=== PATIENT | male | born 1970 | race Caucasian/White ===

== ENCOUNTER → 2020-02-28 08:45 | Outpatient (BNVA) | payer MEDICAID, SELFPAY | PROVIDERS: Visit Provider Psychiatry & Neurology Psychiatry | DX: F41.1 Generalized anxiety disorder (principal); F43.12 Post-traumatic stress disorder, chronic; F40.10 Social phobia, unspecified; F15.21 Other stimulant dependence, in remission; F12.21 Cannabis dependence, in remission | CPT/HCPCS: 99204 ==

== ENCOUNTER → 2020-03-02 16:10 | Outpatient (BNVA) | payer MEDICAID, SELFPAY | PROVIDERS: Visit Provider Nurse Practitioner | DX: M19.90 Unspecified osteoarthritis, unspecified site (principal) | CPT/HCPCS: 80053; 85025 ==

== ENCOUNTER → 2020-03-22 13:09 | Outpatient (BNVA) | payer MEDICAID, SELFPAY | PROVIDERS: Visit Provider Nurse Practitioner | DX: M79.642 Pain in left hand (principal); M79.641 Pain in right hand; M25.562 Pain in left knee; M25.561 Pain in right knee; G89.29 Other chronic pain; R05 Cough; F17.210 Nicotine dependence, cigarettes, uncomplicated | CPT/HCPCS: 71046; 73130; 73562 ==

== ENCOUNTER → 2020-03-23 08:27 | Outpatient (BNVA) | payer MEDICAID, SELFPAY | PROVIDERS: Visit Provider Nurse Practitioner | DX: E55.9 Vitamin D deficiency, unspecified (principal); M19.90 Unspecified osteoarthritis, unspecified site; M79.7 Fibromyalgia; J98.01 Acute bronchospasm | CPT/HCPCS: 82306; 85651 ==

== ENCOUNTER → 2020-04-03 07:46 | Outpatient (BNVA) | payer MEDICAID, SELFPAY | PROVIDERS: Visit Provider Psychiatry & Neurology Psychiatry | DX: F43.12 Post-traumatic stress disorder, chronic (principal); F41.1 Generalized anxiety disorder; F12.21 Cannabis dependence, in remission; F15.21 Other stimulant dependence, in remission; F40.10 Social phobia, unspecified | CPT/HCPCS: 99213 ==

== ENCOUNTER → 2020-05-09 10:51 | Outpatient (BNVA) | payer MEDICAID, SELFPAY | PROVIDERS: Visit Provider Psychiatry & Neurology Psychiatry | DX: F41.1 Generalized anxiety disorder (principal); F43.12 Post-traumatic stress disorder, chronic; F40.10 Social phobia, unspecified; F15.21 Other stimulant dependence, in remission; F12.21 Cannabis dependence, in remission | CPT/HCPCS: 99213 ==

== ENCOUNTER → 2021-06-14 09:30 | Outpatient (BNVA) | payer OTHER, SELFPAY | PROVIDERS: Visit Provider Nurse Practitioner Family | DX: Z20.822 Contact with and (suspected) exposure to COVID-19 (principal) | CPT/HCPCS: 87635 ==

== ENCOUNTER → 2022-03-20 10:32 | Outpatient (BNVA) | payer MEDICAID, SELFPAY | PROVIDERS: Visit Provider Nurse Practitioner | DX: M54.2 Cervicalgia (principal); M25.512 Pain in left shoulder; M47.892 Other spondylosis, cervical region; Z12.5 Encounter for screening for malignant neoplasm of prostate; Z13.6 Encounter for screening for cardiovascular disorders | CPT/HCPCS: 72040; 73030; 80053; 80061; 82306; 85025; G0103 ==

== ENCOUNTER 2024-11-23 21:36 | Emergency (ER) | payer MEDICAID, SELFPAY ==
[2024-11-23 21:49] VITALS: BP 132/90; PULSE 81; RESP 18; TEMP 36.6; O2SAT 98; BMI 26.4
--- NOTE | 2024-11-23 22:03 | XRR_ITS ---
PROCEDURE INFORMATION: Exam: XR Left Hand Exam date and time: 11/23/2024 10:24 PM Age: 53 years old Clinical indication: Pain; Hand; Left; Additional info: Thumb pain TECHNIQUE: Imaging protocol: Radiologic exam of the left hand. Views: 3 or more views. COMPARISON: No relevant prior studies available. 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 Acute dislocation at the 1st IP joint. Exact direction of dislocation is difficult to assess due to lack of a true lateral view. Probable tiny avulsion fracture. Soft tissues: First digit soft tissue swelling. XR/XR hand LT min 3V* [id number] IMPRESSION: Acute dislocation at the 1st IP joint. Exact direction of dislocation is difficult to assess due to lack of a true lateral view. Probable tiny avulsion fracture. Postreduction radiographs are recommended.
[2024-11-23 22:53] VITALS: BP 129/88; PULSE 80; O2SAT 97
[2024-11-23] MEDS: lidocaine 2% INJ 20 mL 10 ML INJECTION (23:48)
--- NOTE | 2024-11-23 23:49 | W.ED.EXTPRO ---
HPI - Extremity Problem General: Chief complaint: Extremity Problem,Nontraumatic Stated complaint: L thumb swollen and pain Time Seen by Provider: 11/23/24 22:03 Source: patient Mode of arrival: ambulatory Limitations: no limitations History of Present Illness: Patient is a 53-year-old male who presents emergency department complaining of left thumb pain for the past 3 weeks. States he was wrestling with a friend and recalls a twisting injury to the left thumb, initially states he was seen for the pain and swelling but was told there was no fracture or abnormality, was discharged home. States that pain and swelling has been worsening since, now he cannot bend the thumb. No distal neurovascular deficits reported. No previous injuries to that thumb. Has not taken anything for pain. MD Complaint: extremity pain and extremity swelling Onset (ago): week(s) (3) Pain Consistency: constant Location: left and upper extremity (Thumb) Radiation: proximal Exacerbating factors: range of motion and palpation Associated symptoms: Deny chest pain, fever(s) or rash Context: other (Twisting injury 3 weeks ago) Related Data Previous Rx's ?Medication ?Instructions ?Recorded nebulizers #1 ea 06/29/20 albuterol sulfate 90 mcg/actuation 2 puff inhalation Q6H PRN 03/20/22 aerosol inhaler (Ventolin HFA) shortness of breath or wheezing #18 grams buspirone 30 mg tablet 30 mg PO BID #60 tabs 03/20/22 doxepin 150 mg capsule 150 mg PO TID PRN anxiety #90 caps 03/20/22 fluticasone 250 mcg-salmeterol 50 1 inh inhalation Q12H #60 ea 03/20/22 mcg/dose blistr powdr for inhalation (Advair Diskus) gabapentin 600 mg tablet 600 mg PO TID #90 tabs 03/20/22 prazosin 5 mg capsule 5 mg PO BID #60 caps 03/20/22 venlafaxine 150 mg 150 mg PO DAILY #30 caps 03/20/22 capsule,extended release 24 hr Allergies Allergy/AdvReac Type Severity Reaction Status Date / Time No Known Allergies Allergy Verified 11/23/24 21:51 Review of Systems General: Reports: 10 or more systems reviewed and unremarkable except in HPI and below Const: Denies: fever(s) or chills Card: Denies: chest pain Resp: Denies: dyspnea or productive cough GI: Denies: abdominal pain, nausea, vomiting or diarrhea : Denies: flank pain Musc: Reports: extremity pain (Left thumb), extremity swelling (Left thumb) and limited range of motion (Left thumb); Denies: neck pain, back pain, joint redness, joint warmth or muscle weakness Skin/Breast: Denies: rash Neuro: Denies: headache(s), numbness in extremities or weakness in extremities PFSH ED PFSH: Medical History Fibromyalgia affecting multiple sites Allergy-induced asthma Arthritis In joints in general Hep C w/ coma, chronic 2011 Current smoker Surgical History History of knee surgery right History of hand surgery right Family History Other Cancer Dementia Diabetes Hypertension Stroke Denies family history of Bleeding disorder Lung disease Social History Smoking and tobacco/nicotine status: current every day tobacco/nicotine user Second hand smoke exposure: Yes Alcohol intake: never Substance/Drug Use: current Adopted: No Caregiver/support person: No Lives independently: Yes Household members: other Housing: House Marital status: Single Number of children: 0 Number of grandchildren: 0 service: No Current occupational status: unemployed Pets and animals: Yes Pets & animals: dog(s) Do you think of yourself as: Straight/Heterosexual Current gender identity: Male Physical Exam Const: COMMON NORMALS: no acute distress, patient oriented x3, no limitations, healthy appearing, alert and well nourished HENMT: COMMON NORMALS: normocephalic and atraumatic HEAD & SCALP: normocephalic and atraumatic Neck/C-Spine: COMMON NORMALS: full ROM, supple and no meningeal signs Resp: COMMON NORMALS: normal respiratory effort, No use of accessory muscles and clear to auscultation bilaterally AUSCULTATION: clear to auscultation bilaterally Cardio: COMMON NORMALS: regular rate and regular rhythm RATE: regular rate RHYTHM: regular rhythm Extremity: COMMON NORMALS: capillary refill normal NARRATIVE EXTREMITY EXAM: Fusiform swelling of the left thumb noted, limited range of motion of the left thumb. Tender to palpation, capillary refill normal and distal neurovascular status intact. Neuro: COMMON NORMALS: patient oriented x3, moves all extremities, no focal motor deficits and no sensory deficits noted SENSORIUM/ORIENTATION: Yes alert MENINGEAL SIGNS: Yes no meningeal signs Skin: COMMON NORMALS: no rashes or lesions noted GENERAL SKIN EXAM: no rashes or lesions noted Procedures Nerve Block Nerve Block 1: Local Anesthetic: lidocaine 2% Amount of anesthesia used (mL): 6 Side: left Nerve Blocks: digital Procedure Successful: Yes Patient Tolerated Procedure: well Orthopedic Joint Reduction Joint #1: Side: left Joint Reduction Location: finger Analgesia: nerve block Local Anesthesia: lidocaine 2% Amount of anesthesic used (mL): 6 Technique used: traction/counter-traction Post-reduction neuro exam: intact Post-reduction vascular: intact Post Reduction X-Ray Obtained: No Post Reduction X-Ray Results: not reduced Splint Applied: No Course Vital Signs: Vital signs: Vital Signs Temperature 97.9 F 11/23/24 21:49 Pulse Rate 80 11/23/24 22:53 Respiratory Rate 18 11/23/24 21:49 Blood Pressure 129/88 11/23/24 22:53 Pulse Oximetry 97 11/23/24 22:53 Oxygen Delivery Me thod Room Air 11/23/24 21:49 MDM - Extremity (Nontraumatic) Medical Decision Making Patient has dislocation on the x-ray of the left thumb, dorsal angulation of the distal phalanx. This did occur 3 weeks ago. Neurovascular status intact on exam, swelling likely obscured the obvious deformity. Spoke with on-call orthopedist, Dr. Carroll, who recommended attempt at reduction here in the ED. Discussed plan with Dr. Amaro who assisted with reduction after digital block obtained anesthesia. However reduction attempts were unsuccessful due to the amount of swelling as well as likely complicated from chronicity of the initial injury. Again spoke with Dr. Carroll who kindly agrees to see the patient in the morning for consultation, I discussed this plan with the patient who states he will keep his phone on him and await a call. Told him to return to the meantime if anything severely changes and to take ibuprofen and Tylenol. He agrees with this plan and verbalized understanding to return precautions. XR interpretation done by ED provider, pending radiology final review ED provider radiology interpretation(s): X-ray of left hand, dorsal dislocation of the left first distal phalanx, does not appear to be any associated fracture. Discharge Plan Discharge Patient Disposition: Home Clinical Impression: Closed dislocation of left thumb Qualifiers: Encounter type: initial encounter Qualified Code(s): S63.105A - Unspecified dislocation of left thumb, initial encounter Condition: Stable Prescriptions: No Action prazosin 5 mg capsule 5 mg PO BID Qty: 60 2RF venlafaxine 150 mg capsule,extended release 24hr 150 mg PO DAILY Qty: 30 2RF gabapentin 600 mg tablet 600 mg PO TID Qty: 90 2RF fluticasone propion-salmeterol [Advair Diskus] 250-50 mcg/dose blister with device 1 inh INHALATION Q12H Qty: 60 2RF doxepin 150 mg capsule 150 mg PO TID PRN (Reason: anxiety) Qty: 90 2RF buspirone 30 mg tablet 30 mg PO BID Qty: 60 2RF albuterol sulfate [Ventolin HFA] 90 mcg/actuation HFA aerosol inhaler 2 puff INHALATION Q6H PRN (Reason: shortness of breath or wheezing) Qty: 18 2RF (DME) nebulizers Misc See Rx Instructions .ROUTE .MEDSUPPLY Qty: 1 0RF Rx Instructions: daily Discharge Orders: Discharge ED (Routine); Ordered 11/23/24 Ordered By: Miguel Tidwell Patient Instructions: Finger Dislocation (ED) Activity Restrictions/Additional Instructions: Please await a call in the morning from orthopedics to schedule appointment, follow-up as we discussed. Ibuprofen or Tylenol in the meantime for pain. Return with any new or concerning. Print Language: Belgian Coding Level of Care Code ED Verification Rep for Milena Woodward
[2024-11-24 00:08] VITALS: BP 165/112; PULSE 78; O2SAT 94
--- NOTE | 2024-11-24 08:24 | DCPLANNER ---
Message sent to Ortho for Patient has dislocation on the x-ray of the left thumb, dorsal angulation of the distal phalanx. This did occur 3 weeks ago. Neurovascular status intact on exam, swelling likely obscured the obvious deformity. Spoke with on-call orthopedist, Dr. Carroll, who recommended attempt at reduction here in the ED. Discussed plan with Dr. Amaro who assisted with reduction after digital block obtained anesthesia. However reduction attempts were unsuccessful due to the amount of swelling as well as likely complicated from chronicity of the initial injury. Again spoke with Dr. Carroll who kindly agrees to see the patient in the morning for consultation,
== END 2024-11-23 23:52 | disposition home or self-care (01) ==
PROVIDERS: Emergency Provider Physician Assistant
DX: S63.105A Unspecified dislocation of left thumb, initial encounter (principal); Z72.0 Tobacco use; X58.XXXA Exposure to other specified factors, initial encounter; Y93.72 Activity, wrestling
CPT/HCPCS: 26770; 73130; 99283; J9999

== ENCOUNTER → 2024-11-24 11:27 | Outpatient (BNVA) | payer MEDICAID, SELFPAY | PROVIDERS: Visit Provider Student in an Organized Health Care Education/Training Program | DX: S63.105A Unspecified dislocation of left thumb, initial encounter (principal); X50.9XXA Other and unspecified overexertion or strenuous movements or postures, initial encounter | CPT/HCPCS: 73130; 99204 ==

== ENCOUNTER 2024-11-25 12:02 | Day surgery (SDC) | payer MEDICAID, SELFPAY ==
[2024-11-25] VITALS (9 sets, daily range): BP systolic 111–150; BP diastolic 78–109; PULSE 70–81; RESP 16–18; TEMP 36.2–36.4; O2SAT 95–99; BMI 24.9
[2024-11-25] MEDS: sodium chloride 0.9% 1,000 ML 30 ML IV (12:51)
[2024-11-25] MEDS: acetaminophen 1,000 MG/100 ML PIGGYBACK 400 MG IV (12:52)
[2024-11-25] MEDS: ketorolac 30 mg/mL INJ IVP (12:52)
[2024-11-25] MEDS: scopolamine 1 mg PATCH 1 PATCH TRANSDERMA (12:56)
--- NOTE | 2024-11-25 13:49 | ANES.PREANE2 ---
Pre-Anesthetic Assessment Height/Weight: Height 6 ft 1 in Weight 189 lb Temp Pulse Resp BP Pulse Ox O2 Del Method 97.4 F L 71 18 150/109 99 Room Air 11/25/24 12:41 11/25/24 12:41 11/25/24 12:41 11/25/24 12:41 11/25/24 12:41 11/25/24 12:41 Preop Diagnosis: Dislocation of left thumb Operation Date: 11/25/24 13:55 Proposed Procedures p THUMB INTERPHALANGEAL JOINT CLOSED VERSUS OPEN REDUCTION POSSIBLE PERCUTANEOUS PINNING](Left) - Lamont Glen, DO Was Beta Katja taken within 24 hours: N/A Was Clonidine taken within 24 hours: N/A Last intake: Intake Last Liquid Date 11/25/24 Last Liquid Time 08:00 Last Solid Date 11/24/24 Last Solid Time 23:30 Social Tobacco and No alcohol Exam alert, oriented x 3, clear to auscultation bilaterally and regular rate & rhythm Airway Submandibular: within normal limits Cervical ROM: within normal limits Mallampati: Class II Comments: Comments: Poor dentition, multiple missing teeth. Denies any loose Anesthetic Plan ASA status: 3 Anesthesia: MAC Other: No prior issues with anesthesia NPO since yesterday evening Current smoker, nicotine and cannabis Denies hypertension, preop BP 150/109 Prior methamphetamine abuse, in remission METs greater than 4 Plan for MAC anesthesia with local via surgeon Medications/Allergies Home Medications ?Medication ?Instructions ?Recorded ?Confirmed ?Last Taken ?Type albuterol sulfate 90 mcg/actuation 2 puff inhalation Q6H PRN 03/20/22 11/24/24 Unknown Rx aerosol inhaler (Ventolin HFA) shortness of breath or wheezing #18 grams buspirone 30 mg tablet 30 mg PO BID #60 tabs 03/20/22 11/24/24 11/24/24 Rx gabapentin 600 mg tablet 600 mg PO TID #90 tabs 03/20/22 11/24/24 11/24/24 Rx doxepin 150 mg capsule 150 mg PO BEDTIME 11/24/24 11/24/24 11/23/24 History fluticasone 250 mcg-salmeterol 50 1 inh inhalation Q12H PRN 11/24/24 11/24/24 Unknown History mcg/dose blistr powdr for shortness of breath inhalation (Advair Diskus) prazosin 5 mg capsule 5 mg PO BEDTIME 11/24/24 11/24/24 11/23/24 History Allergies Allergy/AdvReac Type Severity Reaction Status Date / Time No Known Allergies Allergy Verified 11/24/24 11:29 Current Medications Generic Name Dose Route Start Last Admin Trade Name Freq PRN Reason Stop Dose Admin Sodium Chloride 1,000 mls @ 30 mls/hr 11/25/24 13:00 11/25/24 12:51 Sodium Chloride 0.9% IV 11/26/24 12:59 30 mls/hr .Q24H STEVE Administration PFSH Anesthesia Medical History Fibromyalgia affecting multiple sites Allergy-induced asthma Arthritis In joints in general Hep C w/ coma, chronic 2011 Current smoker Surgical History History of knee surgery right History of hand surgery right Family History Other Cancer Dementia Diabetes Hypertension Stroke Denies family history of Bleeding disorder Lung disease Social History Smoking and tobacco/nicotine status: current every day tobacco/nicotine user Second hand smoke exposure: Yes Alcohol intake: never Substance/Drug Use: current Adopted: No Caregiver/support person: No Lives independently: Yes Household members: other Housing: House Marital status: Single Number of children: 0 Number of grandchildren: 0 service: No Current occupational status: unemployed Pets and animals: Yes Pets & animals: dog(s) Do you think of yourself as: Straight/Heterosexual Current gender identity: Male Data Anesthesia Cardiac Studies: No Data to Display
--- NOTE | 2024-11-25 14:13 | W.PM.OPSUD ---
Surgery/Procedure H&P Update DATE OF PROCEDURE: November 25, 2024 DATE H&P PERFORMED: 11/24/24 H&P UPDATE INFORMATION: I have reviewed H&P completed within last 30 days, I have examined patient prior to procedure and No changes to prior documentation PREOP DIAGNOSIS: Dislocation of left thumb PRIMARY INDICATION FOR PROCEDURE: Left thumb IP joint dislocation PLANNED PROCEDURE: Operation Date: 11/25/24 13:55 Proposed Procedures p THUMB INTERPHALANGEAL JOINT CLOSED VERSUS OPEN REDUCTION POSSIBLE PERCUTANEOUS PINNING](Left) - Lamont Carroll DO
[2024-11-25] MEDS: ceFAZolin 2,000 MG in sodium chloride 0.9% (plus) 50 ML 100 MG IV (15:01)
--- NOTE | 2024-11-25 16:06 | W.PM.BPON ---
Date of Procedure: 11/25/2024 Surgeon: Lamont Carroll DO Global Creative Chairman(s): None Procedure(s) performed: Left thumb interphalangeal joint open reduction and percutaneous pin fixation Left thumb interphalangeal joint capsular release and scar tissue excision Findings of the procedure(s): Patient was found to have a left thumb fracture dislocation interphalangeal joint subacute to chronic spin out for over 3 weeks significant scar tissue and adhesions were noted as this has been out for over 3 weeks. Attempt at close was performed and unsuccessful subsequently proceeded to open and try to utilize a [place] to lever this over however patient had significant adhesions and scar tissue around the capsule as well as the collaterals as result capsular release and scar tissue excision was performed which then mobilized the joint was able to utilize a [place] to lever this over. Patient was found to have small minimally displaced fracture fragments consistent with a fracture dislocation of the IP joint of the thumb. This was reduced and a percutaneous 0.62 K wire was then placed across the interphalangeal joint while this was reduced and satisfactory fixation. Patient was then placed into a splint taken back in stable condition Estimated blood loss: 5 mL Specimen(s) removed: None Post-operative diagnosis: Subacute/chronic left thumb interphalangeal joint fracture dislocation
--- NOTE | 2024-11-25 16:09 | P.OP_ITS ---
Operative Report Date of procedure: November 25, 2024 Pre-op diagnosis: Subacute/chronic left thumb interphalangeal joint dislocation Post-op diagnosis: Subacute/chronic left thumb interphalangeal joint fracture dislocation Procedure done: Left thumb interphalangeal joint open reduction and percutaneous pin fixation Left thumb interphalangeal joint capsular release and scar tissue excision Implants: 0.062 K wire Surgeon: Lamont Carroll DO Anesthesia: General Estimated blood loss: 5mL 34mins IV fluids: 800 mL Complications: None Findings: See operative report narrative Condition: stable Disposition: same day Brief History: Patient is a 53-year-old male who sustained an injury over 3 weeks ago to the left thumb interphalangeal joint. Patient thought he just twisted it continue to have pain and some swelling and has resolved he presented to the emergency department couple days ago. Was found to have a left thumb dislocation at the interphalangeal joint. Attempts were made at closed reduction and unsuccessful likely due to his chronicity of the injury and duration of time of being dislocated he was sent to my office the following day and at that point in time given his persistent dislocation and he also wished to not have any other attempts done of closed reduction with him being wide-awake he like to go to the OR for this. We talked about the ins and outs procedure the risk benefits complication alternatives of surgery and through shared decision making he was proceed with surgical intervention for left thumb interphalangeal joint closed versus open reduction with possible percutaneous pinning. Understand risk of surgery elects proceed with surgical intervention all questions answered at this time. Procedure: Patient was seen and evaluated the preoperative holding area. Consent was reviewed and signed with patient. Correct digit was then subsequently marked. Patient was then seen evaluated by anesthesia once cleared for surgery was taken back to the operative suite patient was kept on a [facility] [employer] armboard applied to the left upper extremity patient then subsequently underwent anesthesia. As far as the anesthesia department. Once properly anesthetized the left upper extremity had a nonsterile tourniquet applied to left arm. At this point in time a final timeout performed. Patient received appropriate preoperative antibiotics. At this point, brought in the fluoroscopic x-ray imaging to attempt for a closed reduction once he was under anesthesia. I brought in the mini fluoroscopic imaging he had a dislocation of the interphalangeal joint dorsally. At this point time multiple attempts were made for close reduction and unsuccessful given there was likely entrapment of scar tissue capsule and preventing it from satisfactory reduction at this point time plan was for an open reduction. At this point time the left upper extremity was then prepped and draped in orthopedic fashion. Once again final timeout performed. And had satisfactory received appropriate preoperative antibiotics. Esmarch tourniquet was used exsanguinate left upper extremity tourniquet Was insufflated 250 mmHg. At this point in time I mapped out a S shaped incision over the dorsal aspect of the left thumb. Sharp scalpel is manage was through skin only switched to Littler dissection scissors and created full-thickness skin flaps directly over the extensor tendon mechanism. I then in parallel fashion on the radial and ulnar sides of the extensor mechanism utilize sharp scalpel blade to perform releases to get adhesions of the extensor tendon off of the middle phalanx. At this point in time I utilized a blunt [place] probe to break up any scar tissue and placed this at the dislocation site. I was able to view that there was a small nondisplaced fractures of the chondral cartilage as well as significant wearing of the cartilage consistent with developing arthritis of the interphalangeal joint. At this point time multiple attempts were made at leveraging over the IP joint to reduce the distal interphalangeal joint which was unsuccessful I then subsequently further advanced this in release to any of the anterior capsule and anything entrapment it was evident the patient had significant scarring of the capsule radially and ulnarly which was excised and released all excessive scar tissue around the interphalangeal joint. At this point in time once that was performed of capsular release and scar tissue excision I then was able to place a [place] into and had satisfactory reduction and translation of the mobilization of the distal interphalangeal joint. At this point in time once I was satisfied with the reduction this was held and then I subsequently advanced a 0.62 K wire in retrograde fashion to the distal phalanx into the middle phalanx while maintaining the reduction of the interphalangeal joint. This was kept in center center position utilized with fluoroscopic imaging and bed into the middle phalanx in satisfactory position. At this point in time we had satisfactory reduction as well as fixation and maintenance of the reduction of the distal interphalangeal joint. This point time was satisfied with the fixation. Tourniquet was deflated hemostasis satisfactory thoroughly irrigation was then performed. I then subsequently clamped event cut and capped the end of the K wire of the left thumb. This was then dressed with Xeroform 4 x 4's Curlex and a thumb spica splint was applied. Patient was then awakened from anesthesia taken back to PACU stable condition. Disposition: Patient taken back to PACU in stable condition Patient received appropriate discharge structure as well as pain medication postoperatively will follow-up in the office in 2 weeks. Patient to be nonweightbearing and maintain splint until follow-up. All questions answered at this time. Patient understands and agrees with current plan.
--- NOTE | 2024-11-25 16:42 | PM.PACU ---
PACU note Narrative: Patient is a 53-year-old male that just underwent a left thumb distal phalanx open reduction and percutaneous pinning. Patient transferred to PACU in stable condition. Pain is well controlled. Dressing on hand is dry and in place. Patient's fingers are warm and well-perfused. Patient can wiggle fingers. normal cap refill under 2 seconds. Patient has normal elbow range of motion. Sensation hand intact. Exam: somnolent, arousable Disposition: discharged
[2024-11-25] MEDS: HYDROcodone-acetaminophen 5-325 mg Tablet 1 TAB PO (17:16)
--- NOTE | 2024-11-25 17:24 | SUR.PHASEII ---
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
[2024-11-25] MEDS: HYDROcodone-acetaminophen 5-325 mg Tablet 2 TAB PO (17:34)
--- NOTE | 2024-11-25 17:38 | ANE.PACU2 ---
Inpatient post-anesthesia follow up: Airway intact: Yes Vital signs: Temperature 97.5 F Pulse Rate 81 Respiratory Rate 16 Blood Pressure 130/107 Pulse Oximetry 97 Oxygen Delivery Me thod Room Air Oxygen Flow Rate Fraction of Inspir ed Oxygen Hydration adequate: Yes Nausea and vomiting: No Pain level: 1 Mental status: Baseline
== END 2024-11-25 17:38 | disposition home or self-care (01) ==
PROVIDERS: Visit Provider Student in an Organized Health Care Education/Training Program
PROC: (CPT 26746; principal; 2024-11-25 13:45)
DX: S63.125A Dislocation of interphalangeal joint of left thumb, initial encounter (principal); X58.XXXA Exposure to other specified factors, initial encounter; W50.2XXA Accidental twist by another person, initial encounter; K73.9 Chronic hepatitis, unspecified; F17.200 Nicotine dependence, unspecified, uncomplicated; M19.09 Primary osteoarthritis, other specified site
CPT/HCPCS: 26746; 26525; C1713; J0131; J0690; J1885; J2250; J2704; J3010; J7030; J9999

== ENCOUNTER → 2025-05-26 15:44 | Outpatient (BNVA) | payer MEDICAID, SELFPAY | PROVIDERS: Visit Provider Nurse Practitioner | DX: Z13.6 Encounter for screening for cardiovascular disorders (principal); Z12.5 Encounter for screening for malignant neoplasm of prostate | CPT/HCPCS: 80053; 80061; 81000; 84443; G0103 ==

== ENCOUNTER 2025-08-10 18:47 | Emergency (ER) | payer MEDICAID, SELFPAY ==
[2025-08-10 18:49] VITALS: BP 159/114; PULSE 65; RESP 16; TEMP 36.7; O2SAT 96; BMI 28.5
--- NOTE | 2025-08-10 18:50 | XRR_ITS ---
PROCEDURE INFORMATION: Exam: XR Chest Exam date and time: 08/10/2025 6:53 PM Age: 54 years old Clinical indication: Pain; Angina pectoris; Additional info: Chest pain TECHNIQUE: Imaging protocol: Radiologic exam of the chest. Views: 1 view. COMPARISON: CR XR chest 2V* [id number] 03/22/2020 1:09 PM FINDINGS: Lungs: Clear lungs. Pleural spaces: No pneumothorax or pleural effusion. Heart/Mediastinum: Cardiac silhouette is normal. Bones/joints: Unremarkable. XR/XR chest 1V portable [id number] IMPRESSION: No acute findings.
--- NOTE | 2025-08-10 18:50 | ECG_ITS ---
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 Measurements Intervals [place] Rate: 63 P: 57 LA: 188 QRS: 67 QRSD: 105 T: 31 QT: 383 QTc: 392 Interpretive Statements SINUS RHYTHM No previous ECG available for comparison Electronically Signed On 08-10-2025 23:25:43 LITERACY COORDINATOR by Taniya Alfaro M.D. [email or web address] [id number]
--- NOTE | 2025-08-10 18:55 | PC.NURSE ---
PT WAS GIVEN [facility] EN ROUTE BY [facility].
--- NOTE | 2025-08-10 19:07 | ED_ITS ---
HPI - General Adult 2 General: Chief complaint: General Medical Stated complaint: chest tightness Time Seen by Provider: 08/10/25 18:49 History of Present Illness: 54-year-old male presents to the emergen cy room with complaints of headache and hypertension. He said a little bit of chest discomfort as well as been out of his propranolol for the last 2 days. No radiation of the chest pain no diaphoresis no shortness of breath. Patient does smoke. He has no history of coronary artery disease or arrhythmias. Associated symptoms: Reports chest pain and headache(s); Deny dyspnea or rash Related Data Previous Rx's ?Medication ?Instructions ?Recorded fluticasone 250 mcg-salmeterol 50 1 inh inhalation Q12 H PRN 05/26/25 mcg/dose blistr powdr for shortness of breath #60 ea inhalation (Advair Diskus) gabapentin 600 mg tablet 600 mg PO TID #90 tabs 05/26 aspirin 81 mg tablet,delayed 81 mg PO DAILY #30 tabs 1 10/11/24 release albuterol sulfate 90 mcg/actuation 2 puff inhalation Q 6H PRN 08/15/25 aerosol inhaler (Ventolin HFA) shortness of breath or wheezing #18 grams buspirone 30 mg tablet 30 mg PO BID #60 tabs doxepin 150 mg capsule 150 mg PO BEDTIME #30 caps 1 10/16/24 prazosin 5 mg capsule 5 mg PO BEDTIME #30 caps 05/02 Allergies Allergy/AdvReac Type Severity Reaction Status Date / Time No Known Allergies Allergy Verified 05/26/25 15:04 Review of Systems 2 Const: Denies: fever(s) or chills Card: Reports: chest pain Resp: Denies: dyspnea GI: Denies: abdominal pain : Denies: dysuria, urinary frequency or urinary urgency Musc: Denies: neck pain or back pain Skin/Breast: Denies: rash Neuro: Reports: headache(s) PFSH ED 2 PFSH: Medical History Fibromyalgia affecting multiple sites Allergy-induced asthma Arthritis In joints in general Hep C w/ coma, chronic 2011 Current smoker Surgical History History of knee surgery right History of hand surgery right Family History Other Cancer Dementia Diabetes Hypertension Stroke Denies family history of Bleeding disorder Lung disease Social History Smoking and tobacco/nicotine status: current every day tobacco/nicotine user Second hand smoke exposure: Yes Alcohol intake: never Substance/Drug Use: current Adopted: No Caregiver/support person: No Lives independently: Yes Household members: other Housing: House Marital status: Single Number of children: 0 Number of grandchildren: 0 service: No Current occupational status: unemployed Pets and animals: Yes Pets & animals: dog(s) Do you think of yourself as: Straight/Heterosexual Current gender identity: Male Physical Exam 2 Const: COMMON NORMALS: no acute distress GENERAL APPEARANCE: cooperative and comfortable ORIENTATION/CONSCIOUSNESS: Yes awake, Yes oriented to person, Yes oriented to place and Yes oriented to time HENMT: COMMON NORMALS: normocephalic, atraumatic and hearing grossly normal bilaterally HEAD & SCALP: normocephalic and atraumatic Resp: COMMON NORMALS: normal respiratory effort, No retractions, No use of accessory muscles and clear to auscultation bilaterally AUSCULTATION: clear to auscultation bilaterally Cardio: COMMON NORMALS: regular rate, regular rhythm and No murmurs present (Cardio) RATE: regular rate RHYTHM: regular rhythm GI: COMMON NORMALS: Soft to palpation and No hepatosplenomegaly present A USCULTATION: Yes normoactive bowel sounds PALPATION: Yes Soft to palpation, No Tenderness to palpation present (GI), No Guarding due to palpation present (GI) and Yes No hepatosplenomegaly present Extremity: COMMON NORMALS: normal to inspection, capillary refill normal, no clubbing, cyanosis or edema, no calf tenderness and no pedal edema Neuro: SENSORIUM/ORIENTATION: Yes oriented to person, Yes oriented to place and Yes oriented to time Skin: COMMON NORMALS: no rashes or lesions noted GENERAL SKIN EXAM: no rashes or lesions noted Course 2 Vital Signs: Vital signs: Vital Signs Temperature 98.1 F 08/10/25 18:49 Pulse Rate 66 08/10/25 21:46 Respiratory Rate 14 08/10/25 21:46 Blood Pressure 131/96 08/10/25 21:46 Pulse Oximetry 96 08/10/25 21:46 Oxygen Delivery Me thod Room Air 12/03/25 19:22 Clincial Decision Support The following clinical decision support tools were used to aid in care of the patient HEART Score -> History: Slightly Suspicous, EKG: Normal, Age: 45-64 yrs, Risk Factors: 1 or 2 Risk Factors, Troponin: Baseline Trop <16 ng/L. Resulting HEART Score: 2. MDM - General Adult Medical Decision Making Medical decision making Social determinants: None I reviewed the patient's medical record. I reviewed the patient's current home meds. Alternate historians: None Differential diagnosis: Acute coronary syndrome, pneumonia, pleuritic chest pain, chest pain secondary to GERD Lab Review: CBC normal. Creatinine 1.3 which is a slight elevation from what he has had in the past he was given IV fluids. Baseline troponin 14 trended down second troponin at 2 hours was 12.43 Imaging:Chest abdomen unremarkable no acute infiltrates no cardiomegaly no pleural effusion Assessment of risk Level of risk: Moderate Hospitalization considerations: Pending cardiac workup results patient may need observation if his troponins are elevated initial EKG unremarkable Reexamination: Repeat exam unchanged however his blood pressure is improved. Assessment and plan: EKG is normal troponins trending negative. Chest x-ray normal. No acute coronary syndrome noted. No evidence of pneumonia pneumothorax no evidence of widening mediastinum. PE seems unlikely given vitals. Oxygen saturations have been normal. Patient's blood pressure has improved. Encouraged him to follow-up with his primary care doctor will need his creatinine rechecked. Additionally he should discuss management of his anxiety and his blood pressure with his primary care physician. Continue current medications as previously prescribed Lab Data 08/10/25 18:29 08/10/25 18:29 Radiology Impressions Chest X-Ray 08/10/25 18:50 IMPRESSION: No acute findings. Laboratory Results WBC 5.19 10^3/uL (3.29-11.43) 08/10/25 18: RBC 4.73 10^6/uL (3.85-5.65) 08/10/25 18:29 Hgb 14.60 g/dL (11.27-16.99) 08/10/25 18:29 Hct 41.5 % (37-53) 08/10/25 18: MCV 87.7 fl (82-101) 08/10/25 18:29 MCH 30.9 pg (27-33) 08/10/25 18: MCHC 35.2 g/dL (30-55) 08/10/25 18: RDW 14.5 % (12.1-15.1) 08/10/25 18: Plt Count 233 10^3/cmm (157-399) 08/10/25 18: MPV 9.9 fL (7.4-10.4) 08/10/25 18: Neut % (Auto) 48.4 % 08/10/25 18: Lymph % (Auto) 34.5 % 08/10/25 18: Piute % (Auto) 10.6 % 08/10/25 18: Eos % (Auto) 5.0 % 08/10/25 18: Baso % (Auto) 1.5 % 08/10/25 18: Neut # (Auto) 2.51 10^3/uL (1.8-7.7) 08/10/25 18: Lymph # (Auto) 1.8 10^3/uL (0.8-4.8) 08/10/25 18: Pi[place] # (Auto) 0.6 10^3/uL (0.2-0.9) 08/10/25 18: Eos # (Auto) 0.3 10^3/uL (0.0-0.8) 08/10/25 18: Baso # (Auto) 0.1 10^3/uL (0.0-0.1) 08/10/25 18: Nucleated RBC % (auto) 0 % 08/10/25 18: Nucleated RBCs # 0.0 /100WBC 08/10/25 18: Sodium 143 mmol/L (136-145) 08/10/25 18: Potassium 4.4 mmol/L (3.5-5.1) 08/10/25 18: Chloride 107 mmol/L (98-107) 08/10/25 18: Carbon Dioxide 23 mmol/L (22-29) 08/10/25 18: Anion Gap 17.4 (5-19) 08/10/25 18: BUN 27 mg/dL (6-20) H 08/10/25 18: Creatinine 1.3 mg/dL (0.7-1.2) H 08/10/25 18:29 GFR Calculation 58.0 mL/min (90-130) L 08/10/25 18: Glucose 96 mg/dL (65-115) 08/10/25 18:29 Calculated Osmolality 301 mOsm/kg (285-295) H 08/10/25 18:29 Calcium 9.4 mg/dL (8.5-10.5) 08/10/25 18:29 Total Bilirubin 0.5 mg/dL (0.15-1.2) 08/10/25 18:29 AST 16 U/L (0-40) 08/10/25 18:29 ALT 16 U/L (0-41) 08/10/25 18: Alkaline Phosphatase 71 U/L (40-130) 08/10/25 18:29 Troponin T Baseline 14 ng/L (0-15) 08/10/25 18:29 Troponin T 120 Minute 12.43 ng/L (0-15) 08/10/25 20:30 Delta Troponin T -1.57 ABS# (0-10) L 08/10/25 20:30 Total Protein 6.9 g/dL (6.6-8.7) 08/10/25 18:29 Albumin 4.6 g/dL (3.5-5.2) 08/10/25 18:29 Globulin 2.3 g/dL (1.3-4.6) 08/10/25 18:29 All radiology interpretation(s) finalized by discharge EKG Data EKG 1: I personally reviewed and interpreted this EKG as follows: Interpretation: EKG 08/10/2025 1854. Sinus rhythm rate of 63 SC interval 188 QTc [address] changes. No STEMI. Computer generated interpretation: Chest X-Ray 08/10/25 18:50 IMPRESSION: No acute findings. EKG 2: I personally reviewed and interpreted this EKG as follows: Interpretation: EKG 08/10/2025 2047 sinus bradycardia rate of 58 SC interval 188 QTc [address] changes. No STEMI. No significant change from EKG done earlier same day. Computer generated interpretation: Chest X-Ray 08/10/25 18:50 IMPRESSION: No acute findings. Discharge Plan Discharge Patient Disposition: Home Clinical Impression: Chest pain, HTN (hypertension) Condition: Stable Prescriptions: New aspirin 81 mg tablet,delayed release (DR/EC) 81 mg PO DAILY Qty: 30 0RF No Action fluticasone propion-salmeterol [Advair Diskus] 250-50 mcg/dose blister with device 1 inh INHALATION Q12H PRN (Reason: shortness of breath) Qty: 60 2RF gabapentin 600 mg tablet 600 mg PO TID Qty: 90 2RF albuterol sulfate [Ventolin HFA] 90 mcg/actuation HFA aerosol inhaler 2 puff INHALATION Q6H PRN (Reason: shortness of breath or wheezing) Qty: 18 2RF buspirone 30 mg tablet 30 mg PO BID Qty: 60 2RF doxepin 150 mg capsule 150 mg PO BEDTIME Qty: 30 2RF prazosin 5 mg capsule 5 mg PO BEDTIME Qty: 30 2RF Discharge Orders: Discharge ED (Routine); Ordered 08/10/25 Ordered By: Eugene Schwartz Discharge Diet: Usual diet Discharge Activity: Increase activity as tolerated Patient Instructions: Opioid Safety, Pain Management, Patient Portal & [place] Instructions Activity Restrictions/Additional Instructions: Thank you for choosing [facility] for your healthcare needs today. It is very important that you follow up as instructed or that you return to the Emergency Department should you have concerns or if your condition changes or worsens in any way. Emergency department visits are focused on emergent conditions, in some cases you may require further evaluation on an outpatient basis. You were seen in the emergency room with complaints of chest tightness and elevated blood pressure. Your blood pressure improved. Chest x-ray was clear your heart enzymes and EKG were normal. Will discharge you home recommend you follow-up with your primary care doctor within the next week to reevaluate your blood pressure. Also recommend that you take a baby aspirin daily. (Please note that included in your discharge packet is information concerning opioid safety and pain management. This information is given to all patients were discharged from the ER regardless of their discharge diagnosis or the medicines they usually take or are prescribed.) Print Language: Irish Coding Level of Care Code ED Logistics Analytics Manager for Milena Woodward
[2025-08-10 19:14] LABS: Hematocrit 41.5 % (37-53); Hemoglobin 14.60 g/dL (11.27-16.99); Mean Corpuscular HGB Conc 35.2 g/dL (30-55); Mean Corpuscular Hemoglobin 30.9 pg (27-33); Mean Corpuscular Volume 87.7 fl (82-101); Nucleated Red Blood Cells % 0 %; Platelet Count 233 10^3/cmm (157-399); Red Blood Count 4.73 10^6/uL (3.85-5.65); White Blood Count 5.19 10^3/uL (3.29-11.43)
[2025-08-10 19:22] VITALS: BP 148/102; PULSE 64; RESP 16; O2SAT 98
--- OUTSIDE RECORDS SUMMARY | 2025-08-10 19:37 | XMS_ITS | Data Portability ---
Author Organization [facility], autoContract Address [address] [place] [address] Assessment No assessment recorded. Plan of Treatment Reminders Order Date Submit Date Provider Last Modified By Organization Details Last Modified Time Details Appointments None recorded. Lab None recorded. Referral None recorded. Procedures None recorded. Surgeries None recorded. Imaging None recorded. Medication Orders diclofenac sodium 75 mg tablet,ivonne yed release 2024 025 [facility], [address] [place], [address], 5 10:06:47 gabapentin 300 mg capsule 2024 025 [facility], [address] [place], [address], 5 12:04:29 ondansetron 8 mg disintegrat ing tablet 2024 025 [facility], [address] [place], [address], 5 16:00:44 mirtazapine 15 mg tablet 2024 025 [facility], [address] [place], [address], 5 12:04:29 buspirone 10 mg tablet 2024 025 [facility], [address] [place], [address], 5 13:16:10 Patient TargetsNo targets recorded. Patient Instructions Encounter Date Encounter Id Patient Instructions Last Modified By Organization Details Last Modified Time 10/06/2024 [id number] Patient discharged to self to home in stable condition. Follow up instructions given. [email or web address] Not available 10/07/2024 07:55:04 Reason for Referral None Reported. Results Created Date Observation Date Name Description Value Unit Range Abnormal Flag Note LastModifiedBy Organization Detail LastModifiedTime 08/21/2008/22/2023 CBC WITH DIFFE RENTI AL WBC 8.3 K/uL 4.0-11 .0 Not Available [facility] [address] [place], [address], 08/22/2023 05:29:18 08/21/20 23 08/22/2023 CBC WITH DIFFE RENTI AL RBC 4.50 M/uL 4.30-5 .70 Not Available [facility] [address] [place], [address], 08/22/2023 05:29:18 08/21/20 23 08/22/2023 CBC WITH DIFFE RENTI AL hemoglobin 14.4 g/dL 13.0-1 7.5 Not Available [facility] [address] [place], [address], 08/22/2023 05:29:18 08/21/20 23 08/22/2023 CBC WITH DIFFE RENTI AL hematocrit 40.5 % 39.0-5 5.0 Not Available [facility] [address] [place], [address], 08/22/2023 05:29:18 08/21/20 23 08/22/2023 CBC WITH DIFFE RENTI AL MCV 90.0 fL 78.0-1 02.0 Not Available [facility] [address] [place], [address], 08/22/2023 05:29:18 08/21/20 23 08/22/2023 CBC WITH DIFFE RENTI AL MCH 32.0 pg 25.0-3 5.0 Not Available [facility] [address] [place], [address], 08/22/2023 05:29:18 08/21/20 23 08/22/2023 CBC WITH DIFFE RENTI AL MCHC 35.6 g/dL 30.0-3 8.0 Not Available [facility] [address] [place], [place], [address], 08/22/2023 05:29:18 08/21/20 23 08/22/2023 CBC WITH DIFFE RENTI AL RDW 12.9 % 11.5-1 6.0 Not Available [facility] [address] [place] [place], [place], [address], 08/22/2023 05:29:18 08/21/20 23 08/22/2023 CBC WITH DIFFE RENTI AL platelet count 301 K/uL 150-45 0 Not Available [facility] [address] [place], [place], [address], 08/22/2023 05:29:18 08/21/20 23 08/22/2023 CBC WITH DIFFE RENTI AL abs neutrophils 5.5 K/uL 1.8-7. 0 Not Available [facility] [address] [place], [place], [address], 08/22/2023 05:29:18 08/21/20 23 08/22/2023 CBC WITH DIFFE RENTI AL abs lymphocytes 1.9 K/uL 1.0-4. 0 Not Available [facility] [address] [place], [place], [address], 08/22/2023 05:29:18 08/21/20 23 08/22/2023 CBC WITH DIFFE RENTI AL abs monocytes 0.6 K/uL 0.1-1. 1 Not Available [facility] [address] [place], [address], 08/22/2023 05:29:18 08/21/20 23 08/22/2023 CBC WITH DIFFE RENTI AL abs eosinophils 0.2 K/uL 0.0-0. 5 Not Available [facility] [address] [place], [address], 08/22/2023 05:29:18 08/21/20 23 08/22/2023 CBC WITH DIFFE RENTI AL abs basophils 0.0 K/uL 0.0-0. 3 Not Available [facility] [address] [place], [address], 08/22/2023 05:29:18 08/21/20 23 08/22/2023 CBC WITH DIFFE RENTI AL abs immature grans 0.0 K/uL 0.0-0. 1 Not Available [facility] [address] [place], [address], 08/22/2023 05:29:18 08/21/20 23 08/22/2023 CBC WITH DIFFE RENTI AL neutrophils 66.6 % Not Available [facility] [address] [place], [address], 08/22/2023 05:29:18 08/21/20 23 08/22/2023 CBC WITH DIFFE RENTI AL lymphocytes 23.2 % Not Available [facility] [address] [place], [address], 08/22/2023 05:29:18 08/21/20 23 08/22/2023 CBC WITH DIFFE RENTI AL monocytes 7.6 % Not Available [facility] [address] [place], [address], 08/22/2023 05:29:18 08/21/20 23 08/22/2023 CBC WITH DIFFE RENTI AL eosinophils 1.9 % Not Available [facility] [address] [place], [address], 08/22/2023 05:29:18 08/21/20 23 08/22/2023 CBC WITH DIFFE RENTI AL basophils 0.5 % Not Available [facility] [address] [place], [address], 08/22/2023 05:29:18 08/21/20 23 08/22/2023 CBC WITH DIFFE RENTI AL immature grans 0.2 % Not Available [facility] [address] [place], [address], 08/22/2023 05:29:18 08/21/20 23 08/22/2023 CBC WITH DIFFE RENTI AL nucleated RBCs <1.0 /100_ WBCs <1 Not Available [facility] [address] [place], [address], 08/22/2023 05:29:18 08/21/20 23 08/22/2023 PSA PSA 1.11 NG/mL 0.00-4 .00 Comme nt for PSA Test perfo rmed using the Mainor elect mainor milum inesc ent immun oassa y (ECLI A). Resul ts obtai akin with diffe rent test metho ds or kits canno t be used inter ledesma eably . Not Available [facility] [address] [place], [address], 08/22/2023 05:29:18 08/21/20 23 08/22/2023 LIPID PROFI LE coronary risk ratio 3.57 <4.97 Comme nt for LIPID PROFI LE Non-H DL Elsi stero l is a dianna r indic ator for cardi ovasc ular risk than LDL-C holes terol for patie nts who have incre ased trigl yceri bo or are non-f astin g. Non-H DL Elsi stero l: < 130 mg/dL (Opti mal) < 160 mg/dL (Near Optim al/Ab ove Optim al) LDL Elsi stero l: < 100 mg/dL (Opti mal) < 130 mg/dL (Near Optim al/Ab ove Optim al) Coron brien Risk Ratio : [place] ge for males < 4.97 Not Available [facility] [address] [place], [address], 08/22/2023 05:29:17 08/21/20 23 08/22/2023 LIPID PROFI LE cholesterol 157 mg/dL <200 Not Available [facility] [address] [place], [address], 08/22/2023 05:29:17 08/21/20 23 08/22/2023 LIPID PROFI LE triglyceride s 64 mg/dL 0-149 Not Available [facility] [address] [place], [address], 08/22/2023 05:29:17 08/21/20 23 08/22/2023 LIPID PROFI LE HDL cholesterol 44 mg/dL >39 Not Available [facility] [address] [place], [address], 08/22/2023 05:29:17 08/21/20 23 08/22/2023 LIPID PROFI LE LDL cholesterol 98 mg/dL <100 Not Available [facility] [address] [place], [address], 08/22/2023 05:29:17 08/21/20 23 08/22/2023 LIPID PROFI LE non HDL cholesterol 113 mg/dL <130 Not Available [facility] [address] [place], [address], 08/22/2023 05:29:17 08/21/20 23 08/22/2023 COMP METAB OLIC PANEL sodium 137 mEq/L 135-14 6 Not Available [facility] [address] [place], [address], 08/22/2023 05:29:17 08/21/20 23 08/22/2023 COMP METAB OLIC PANEL potassium 4.8 mEq/L 3.5-5. 4 Not Available [facility] [address] [place], [address], 08/22/2023 05:29:17 08/21/2008/22/2023 COMP METAB OLIC PANEL chloride 101 mEq/L 95-107 Not Available [facility] [address] [place], [place], [address], 08/22/2023 05:29:17 08/21/20 23 08/22/2023 COMP METAB OLIC PANEL carbon dioxide 22 mEq/L 19-31 Not Available [facility] [address] [place] [place], [place], [address], 08/22/2023 05:29:17 08/21/20 23 08/22/2023 COMP METAB OLIC PANEL anion gap 14 mEq/L 7-23 Not Available [facility] [address] [place], [place], [address], 08/22/2023 05:29:17 08/21/20 23 08/22/2023 COMP METAB OLIC PANEL glucose fasting 113 mg/dL 70-99 high Not Available [facility] [address] [place], [address], 08/22/2023 05:29:17 08/21/20 23 08/22/2023 COMP METAB OLIC PANEL urea nitrogen (BUN) 24 mg/dL 6-20 high Not Available [facility] [address] [place], [address], 08/22/2023 05:29:17 08/21/20 23 08/22/2023 COMP METAB OLIC PANEL creatinine 1.00 mg/dL 0.80-1 .40 Not Available [facility] [address] [place], [address], 08/22/2023 05:29:17 08/21/20 23 08/22/2023 COMP METAB OLIC PANEL 2020 CKD-epi eGFR-cr 92 mL/mi n/1.7 3m'2 >59 Not Available [facility] [address] [place], [place], [address], 08/22/2023 05:29:17 08/21/20 23 08/22/2023 COMP METAB OLIC PANEL BUN/creatini ne ratio 24 ratio Not Available [facility] [address] [place], [place], [address], 08/22/2023 05:29:17 08/21/20 23 08/22/2023 COMP METAB OLIC PANEL calcium total 9.4 mg/dL 8.5-10 .5 Not Available [facility] [address] [place], [place], [address], 08/22/2023 05:29:17 08/21/20 23 08/22/2023 COMP METAB OLIC PANEL protein total 6.3 g/dL 6.1-8. 3 Not Available [facility] [address] [place], [address], 08/22/2023 05:29:17 08/21/20 23 08/22/2023 COMP METAB OLIC PANEL albumin 4.1 g/dL 3.5-5. 2 Not Available [facility] [address] [place], [address], 08/22/2023 05:29:17 08/21/20 23 08/22/2023 COMP METAB OLIC PANEL globulin 2.2 g/dL 1.7-4. 3 Not Available [facility] [address] [place], [place], [address], 08/22/2023 05:29:17 08/21/20 23 08/22/2023 COMP METAB OLIC PANEL A/G ratio 1.9 ratio 0.9-2. 8 Not Available [facility] [address] [place], [address], 08/22/2023 05:29:17 08/21/20 23 08/22/2023 COMP METAB OLIC PANEL bilirubin total 0.5 mg/dL 0.0-1. 2 Not Available [facility] [address] [place], [place], [address], 08/22/2023 05:29:17 08/21/20 23 08/22/2023 COMP METAB OLIC PANEL alkaline phosphatase 60 U/L 40-121 Not Available [facility] [address] [place], [address], 08/22/2023 05:29:17 08/21/20 23 08/22/2023 COMP METAB OLIC PANEL AST (SGOT) 27 U/L 9-50 Not Available [facility] [address] [place], [place], [address], 08/22/2023 05:29:17 08/21/20 23 08/22/2023 COMP METAB OLIC PANEL ALT (SGPT) 23 U/L 5-50 Not Available [facility] [address] [place], [address], 08/22/2023 05:29:17 Result Notes None recorded. Problems Name Problem SNOMED Code Status Onset Date Resolution Date Notes Provider Name and Address Organization Details Recorded Time Bipolar disorder 17414410 Active 2022 Not Available [facility] 4 21:06:37 Depressive disorder 55832046 Active 2022 Not Available [facility] 4 21:06:37 Hypertensive disorder 74972507 Active 2022 Not Available [facility] 4 21:06:37 Nightmares 442438551 Active 2022 Not Available [facility] 4 21:06:38 Post-traumati c stress disorder 19186050 Active 2022 Not Available [facility] 4 21:06:38 Anxiety 46752242 Active 2022 Not Available [facility] 21:06:38 Hyperlipidemi a 99671422 Active 2022 Not Available [facility] 21:06:38 Problem Notes None recorded. Procedures Surgical History Date Name Laterality Status Provider Name and Address Organization Details Recorded Time Orthopedic Surgery completed Not Available [facility] 07/18/2024 21:05:13 Knee Surgery completed Not Available [facility] 07/18/2024 21:05:13 Imaging Results None recorded. Procedure Notes None recorded. Medical Equipment None Reported. Medications Name Sig Start Date Stop Date Status Note LastModified by Organization Details LastModified Time doxepin 50 mg capsule TAKE ONE CAPSULE TWICE DAILY active Not Available Not Available No t Available bupropion HCl SR 150 mg tablet,12 hr sustained-r elease TAKE 1 TABLET TWICE DAILY active Not Available Not Available No t Available ibuprofen 800 mg tablet TAKE 1 TABLET 3 TIMES DAILY active Not Available Not Available No t Available doxepin 25 mg capsule TAKE 1 CAPSULE 3 TIMES DAILY active Not Available Not Available No t Available hydrocodone 5 mg-acetamin ophen 325 mg tablet TAKE 1 TABLET BY MOUTH EVERY 6 HOURS NEEDED FOR PAIN. 04/28 completed Not Available Not Available Not Available prednisone 20 mg tablet Take 1 tablet twice a day by oral route for 7 days. 10/06 completed Not Available Not Available Not Available ciprofloxac in 500 mg tablet TAKE 1 TABLET TWICE DAILY active Not Available Not Available No t Available omeprazole 40 mg capsule,del ayed release TAKE ONE CAPSULE BY MOUTH DAILY active Not Available Not Available No t Available tramadol 50 mg tablet TAKE 1 TABLET EVERY 6 HOURS NEEDED FOR PAIN 10/06 completed Not Available Not Available Not Available ondansetron 8 mg disintegrat ing tablet PLACE 1 TABLET ON THE TONGUE AND allow TO DISSOLVE 3 TIMES DAILY active Not Available Not Available No t Available amoxicillin 875 mg tablet TAKE 1 TABLET TWICE DAILY 04/03 completed Not Available Not Available Not Available mirtazapine 30 mg tablet TAKE 1 TABLET BY MOUTH AT BEDTIME active Not Available Not Available No t Available buspirone 10 mg tablet TAKE 1 TABLET BY MOUTH 3 TIMES DAILY active Not Available Not Available No t Available gabapentin 300 mg capsule TAKE ONE CAPSULE BY MOUTH 3 TIMES DAILY active Not Available Not Available No t Available diclofenac sodium 75 mg tablet,ivonne yed release Take 1 tablet twice a day by oral route for 30 days. active Not Available Not Available No t Available mirtazapine 15 mg tablet TAKE 1 TABLET BY MOUTH DAILY AT BEDTIME active Not Available Not Available No t Available azelastine 137 mcg (0.1 %) nasal spray [place] 2 sprays twice a day by intranasa l route. active Not Available Not Available No t Available ibuprofen 600 mg tablet TAKE 1 TABLET 3 TIMES DAILY active Not Available Not Available No t Available albuterol sulfate HFA 90 mcg/actuati on aerosol inhaler USE two puffs every SIX hous NEEDED active Not Available Not Available No t Available doxycycline hyclate 100 mg tablet active Not Available Not Available No t Available prazosin 2 mg capsule TAKE ONE CAPSULE BY MOUTH AT BEDTIME active Not Available Not Available No t Available Vitals Date Recorded Body height Body mass index (BMI) Body weight Body temperature Heart rate Oxygen saturation Systolic And Diastolic Provider Name and Address Organization Details Last Updated DateTime 5 185.42 cm 23.9 kg/m2 24212.2 2 g 98.7 [degF] 84 /min 100 % 142/105 mm[Hg] [facility] 5 15:05:17 Date Recorded Body mass index (BMI) Body height Heart rate Oxygen saturation Body temperature Body weight Systolic And Diastolic Provider Name and Address Organization Details Last Updated DateTime 3 24.7 kg/m2 185.42 cm 83 /min 97 % 97.5 [degF] 47513.7 7 g 115/76 mm[Hg] Not Available [facility] 21:06:36 Date Recorded Oxygen saturation Body height Body mass index (BMI) Body weight Body temperature Heart rate Systolic And Diastolic Provider Name and Address Organization Details Last Updated DateTime 3 100 % 185.42 cm 25.1 kg/m2 36909.5 5 g 96.3 [degF] 73 /min 132/90 mm[Hg] Not Available [facility] 4 21:06:36 Date Recorded Oxygen saturation Heart rate Body mass index (BMI) Body weight Body height Body temperature Systolic And Diastolic Provider Name and Address Organization Details Last Updated DateTime 3 100 % 99 /min 25.1 kg/m2 44601.5 5 g 185.42 cm 96.6 [degF] 140/90 mm[Hg] Not Available [facility] 21:06:36 Social History Question Answer Notes LastModified by [employer] Details LastModified Time Tobacco Smoking Status Current Every Day Smoker Not Available [facility] 07/18/2024 21:05:25 Are You Blind Or Do You Have Difficulty Seeing? No [id number] Information not available 07/18/2024 What Is Your Level Of Caffeine Consumption? Heavy [id number] Information not available 07/18/2024 Are You Deaf Or Do You Have Serious Difficulty Hearing? No [id number] 900 Information not available 07/18/2024 What Type Of Diet Are You Following? REGULAR [id number].[id number] 900 Information not available 07/18/2024 Which Illicit Or Recreational Drugs Have You Used? THC [id number].[id number] 900 Information not available 07/18/2024 What Was The Date Of Your Most Recent Tobacco Screening? 07/21/2023 [id number] 900 Information not available 07/18/2024 How Many Children Do You Have? 0 [id number] 900 Information not available 07/18/2024 What Is Your Relationship Status? [id number] 900 Information not available 07/18/2024 At What Age Did You Start Smoking Tobacco? 14 [id number] 900 Information not available 07/18/2024 How Much Tobacco Do You Smoke? 1 PPW [id number].[id number] 900 Information not available 07/18/2024 Sex: Unknown Functional Status Question Answer Note LastModified by [employer] Details LastModified Time Do you use any illicit or recreational drugs? Yes [id number] Information not available 07/18/2024 Do you or have you ever used any other forms of tobacco or nicotine? No [id number].[id number] 00 Information not available 07/18/2024 What is your level of alcohol consumption? None [id number].[id number] 00 Information not available 07/18/2024 Are you currently employed? No [id number].[id number] 00 Information not available 07/18/2024 Do you have difficulty doing errands alone? No [id number].[id number] 00 Information not available 07/18/2024 Are you able to care for yourself independently? Yes [id number].[id number] 00 Information not available 07/18/2024 Do you have difficulty dressing, bathing, grooming, or toileting? No MIGRATION.[id number] 00 Information not available 07/18/2024 Mental Status Question Answer Note LastModified by [employer] Details LastModified Time Do you have difficulty concentrating, remembering or making decisions? No [id number] 0 Information not available 07/18/2024 Family History Relationship Description Onset Age of this Age Resolved Age Notes LastModified by Organization Details LastModified Time Mother Malignant neoplastic disease [id number] Not available 07/18/2024 21:05:39 Mother Heart disease [id number] Not available 07/18/2024 21:05:39 Medical History No medical history recorded. Past Encounters Encounter ID Performer Location Encounter Start Date Encounter Closed Date Diagnosis/Indication Diagnosis SNOMED-CT Code Diagnosis ICD10 Code Diagnosis IMO Codes Diagnosis Note [id number] NEELAM RYAN [address] [place] [id number] 08/29/2023 00:00:00 08/31/2023 22:35:40 [id number] NEELAM RYAN [address] [place] [id number] 07/21/2023 00:00:00 07/22/2023 12:10:44 [id number] NEELAM RYAN [address] [place] [id number] 08/21/2023 00:00:00 08/21/2023 15:27:10 [id number] NEELAM RYAN - [place] [address] [place] [id number] 10/06/2024 14:32:11 10/29/2024 16:41:14 Nausea and vomiting 62319186 R11.2 suspect pancreatit its, going to treat with zofran and have pt call with update, if no improvemen t in [address] Osteoarthritis 305064111 M19.90 use as directed Anxiety 54066478 F41.9 use as directed Health Concerns Section Related Observation LastModified by Organization Detai ls LastModified Time None Recorded Concern Status LastModified by Organization Details LastModified Time None Recorded Advance Directives Directive None Recorded Payers Insurance Date Sequence Insurance Name Policy Number Policy Lux Covered Member ID Lux Member ID Guarantor Name 10/08/2024 1 [place] (PPO) [id number] Mukesh Morrison [id number] Mukesh Morrison 05/02/2025 1 CHERELLE HIGGINS - [employer]SS[employer] 2 (PPO) Mukesh Morrison [id number] Mukesh Morrison Notes Date Note Type Note Provider Name and Address Organization Details Recorded Time 10/06/2024 text/html Chest wall/RibsReported by PatientATHENA HPIFor quality, patient reportspain,stabbing , andsharp. For associated symptoms, patient reportsfever/chills. For onset/timing, patient reports2 days ago. For context, patient reportscannot identify. For aggravating factors, patient reportscannot identify. For alleviating factors, patient reportsnothing helps. Patient is here for chest pains at his sternum, patient c/o not eating for 2 days and he is throwing up and dry heaving. JR SRIVASTAVA PA-C [address], [place], [address], [place] - Sajan [facility] 10/07/2024 07:55:26
--- OUTSIDE RECORDS SUMMARY | 2025-08-10 19:37 | XMS_ITS | Data Portability ---
Author Organization YVAN Gupta, Telemedicine Address [address] [place] [address] Assessment No assessment recorded. Plan of Treatment Reminders Order Date Submit Date Provider Last Modified By Organization Details Last Modified Time Details Appointments None recorded. Lab noninvasiv e colorectal cancer DNA + occult blood screening, QL, stool 2022 023 [facility], [address], [address], [place], [address], 3 08:56:44 CMP, serum or plasma 2022 023 [facility] Not available 3 05:29:17 CBC w/ auto diff 2022 023 [facility] Not available 3 05:29:18 lipid panel, serum 2022 023 [facility] Not available 3 05:29:17 PSA, serum or plasma 2022 023 [facility] Not available 3 05:29:18 Referral None recorded. Procedures None recorded. Surgeries None recorded. Imaging electrocar diogram 2022 023 [email or web address] Not available 4 08:26:01 Medication Orders mirtazapin e 15 mg tablet 2022 023 [facility]ON[facility], [address] [place], [address], 4 15:29:20 prednisone 20 mg tablet 2022 023 [facility]ON[facility], [address] [place], [address], 3 13:14:11 buspirone 10 mg tablet 2022 023 [facility], [address] [place], [address], 4 15:29:15 diclofenac sodium 75 mg tablet,del ayed release 2022 023 [facility]ONADI[facility], [address] [place], [address], 4 15:29:15 gabapentin 300 mg capsule 2022 023 [facility], [address] [place], [address], 4 15:29:18 mirtazapin e 15 mg tablet 2022 023 [facility], [address] [place], [address], 3 13:25:54 buspirone 10 mg tablet 2022 023 [facility], [address] [place], [address], 3 13:25:55 diclofenac sodium 75 mg tablet,del ayed release 2022 023 H[facility], [address] [place], [address], 3 13:25:54 gabapentin 300 mg capsule 2022 023 [facility], [address] [place], [address], 3 13:25:56 doxycyclin e hyclate 100 mg tablet 2022 023 [facility], [address] [place], [address], 11:31:36 azelastine 137 mcg (0.1 %) nasal spray 2022 023 [facility], [address] [place], [address], 15:29:17 Patient TargetsNo targets recorded. Patient InstructionsNo instructions recorded. Reason for Referral None Reported. Results Created Date Observation Date Name Description Value Unit Range Abnormal Flag Note LastModifiedBy Organization Detail LastModifiedTime 08/21/2008/22/2023 COMP METAB OLIC PANEL sodium 137 mEq/L 135-14 6 Not Available [facility] [address], [address], 08/22/2023 05:29:17 08/21/20 23 08/22/2023 COMP METAB OLIC PANEL potassium 4.8 mEq/L 3.5-5. 4 Not Available [facility] [address] [place], [address], 08/22/2023 05:29:17 08/21/20 23 08/22/2023 COMP METAB OLIC PANEL chloride 101 mEq/L 95-107 Not Available [facility] ([facility] [address] [place], [address], 08/22/2023 05:29:17 08/21/20 23 08/22/2023 COMP METAB OLIC PANEL carbon dioxide 22 mEq/L 19-31 Not Available [facility] [address] [place], [address], 08/22/2023 05:29:17 08/21/20 23 08/22/2023 COMP METAB OLIC PANEL anion gap 14 mEq/L 7-23 Not Available [facility] [address] [place], [address], 08/22/2023 05:29:17 08/21/20 23 08/22/2023 COMP METAB OLIC PANEL glucose fasting 113 mg/dL 70-99 high Not Available [facility] [address] [place], [address], 08/22/2023 05:29:17 08/21/20 23 08/22/2023 COMP METAB OLIC PANEL urea nitrogen (BUN) 24 mg/dL 6-20 high Not Available [facility] [address] [place], [address], 08/22/2023 05:29:17 08/21/20 23 08/22/2023 COMP METAB OLIC PANEL creatinine 1.00 mg/dL 0.80-1 .40 Not Available [facility] [address] [place], [address], 08/22/2023 05:29:17 08/21/20 23 08/22/2023 COMP METAB OLIC PANEL 2020 CKD-epi eGFR-cr 92 mL/mi n/1.7 3m'2 >59 Not Available [facility] ([facility] [address] [place], [address], 08/22/2023 05:29:17 08/21/20 23 08/22/2023 COMP METAB OLIC PANEL BUN/creatini ne ratio 24 ratio Not Available [facility] [address] [place], [address], 08/22/2023 05:29:17 08/21/20 23 08/22/2023 COMP METAB OLIC PANEL calcium total 9.4 mg/dL 8.5-10 .5 Not Available [facility] [address] [place], [address], 08/22/2023 05:29:17 08/21/20 23 08/22/2023 COMP METAB OLIC PANEL protein total 6.3 g/dL 6.1-8. 3 Not Available [facility] [address] [place], [address], 08/22/2023 05:29:17 08/21/20 23 08/22/2023 COMP METAB OLIC PANEL albumin 4.1 g/dL 3.5-5. 2 Not Available [facility] [address] [place], [address], 08/22/2023 05:29:17 08/21/20 23 08/22/2023 COMP METAB OLIC PANEL globulin 2.2 g/dL 1.7-4. 3 Not Available [facility] [address] [place], [address], 08/22/2023 05:29:17 08/21/20 23 08/22/2023 COMP METAB OLIC PANEL A/G ratio 1.9 ratio 0.9-2. 8 Not Available [facility] ([facility] [address] [place], [address], 08/22/2023 05:29:17 08/21/20 23 08/22/2023 COMP METAB OLIC PANEL bilirubin total 0.5 mg/dL 0.0-1. 2 Not Available [facility] [address] [place], [address], 08/22/2023 05:29:17 08/21/20 23 08/22/2023 COMP METAB OLIC PANEL alkaline phosphatase 60 U/L 40-121 Not Available [facility] [address] [place], [address], 08/22/2023 05:29:17 08/21/20 23 08/22/2023 COMP METAB OLIC PANEL AST (SGOT) 27 U/L 9-50 Not Available [facility] [address] [place], [address], 08/22/2023 05:29:17 08/21/20 23 08/22/2023 COMP METAB OLIC PANEL ALT (SGPT) 23 U/L 5-50 Not Available [facility] ([facility] [address] [place], [place], [address], 08/22/2023 05:29:17 08/21/20 23 08/22/2023 LIPID PROFI LE cholesterol 157 mg/dL <200 Not Available [facility] [address] [place], [address], 08/22/2023 05:29:17 08/21/20 23 08/22/2023 LIPID PROFI LE triglyceride s 64 mg/dL 0-149 Not Available [facility] [address] [place], [address], 08/22/2023 05:29:17 08/21/20 23 08/22/2023 LIPID PROFI LE HDL cholesterol 44 mg/dL >39 Not Available [facility] [address] [place], [address], 08/22/2023 05:29:17 08/21/20 23 08/22/2023 LIPID PROFI LE LDL cholesterol 98 mg/dL <100 Not Available [facility] [address] [place], [address], 08/22/2023 05:29:17 08/21/20 23 08/22/2023 LIPID PROFI LE non HDL cholesterol 113 mg/dL <130 Not Available [facility] [address] [place], [address], 08/22/2023 05:29:17 08/21/20 23 08/22/2023 LIPID PROFI LE coronary [...] Optim al) Coron brien Risk Ratio : [place] for males < 4.97 Not Available [facility] ([facility]) [address] [place], [address], 08/22/2023 05:29:17 08/21/20 23 08/22/2023 PSA PSA 1.11 NG/mL 0.00-4 .00 Comme nt for PSA Test perfo rmed using the Mainor elect mainor milum inesc ent immun oassa y (ECLI A). Resul ts obtai akin with diffe rent test metho ds or kits canno t be used inter ledesma eaaren . Not Available [facility] ([facility] [address] [place], [address], 08/22/2023 05:29:18 08/21/20 23 08/22/2023 CBC WITH DIFFE RENTI AL WBC 8.3 K/uL 4.0-11 .0 Not Available [facility] [address] [place], [address], 08/22/2023 05:29:18 08/21/20 23 08/22/2023 CBC WITH DIFFE RENTI AL RBC 4.50 M/uL 4.30-5 .70 Not Available [facility] [address] [place], [address], 08/22/2023 05:29:18 08/21/20 23 08/22/2023 CBC WITH DIFFE RENTI AL hemoglobin 14.4 g/dL 13.0-1 7.5 Not Available [facility] [address] [place], [place], [address], 08/22/2023 05:29:18 08/21/20 23 08/22/2023 CBC WITH DIFFE RENTI AL hematocrit 40.5 % 39.0-5 5.0 Not Available [facility] [address] [place], [place], [address], 08/22/2023 05:29:18 08/21/20 23 08/22/2023 CBC WITH DIFFE RENTI AL MCV 90.0 fL 78.0-1 02.0 Not Available [facility] ([facility] [address] [place], [place], [address], 08/22/2023 05:29:18 08/21/20 23 08/22/2023 CBC WITH DIFFE RENTI AL MCH 32.0 pg 25.0-3 5.0 Not Available [facility] [address] [place], [address], 08/22/2023 05:29:18 08/21/20 23 08/22/2023 CBC WITH DIFFE RENTI AL MCHC 35.6 g/dL 30.0-3 8.0 Not Available [facility] ([facility] [address] [place], [place], [address], 08/22/2023 05:29:18 08/21/20 23 08/22/2023 CBC WITH DIFFE RENTI AL RDW 12.9 % 11.5-1 6.0 Not Available [facility] [address] [place], [address], 08/22/2023 05:29:18 08/21/20 23 08/22/2023 CBC WITH DIFFE RENTI AL platelet count 301 K/uL 150-45 0 Not Available [facility] [address] [place], [address], 08/22/2023 05:29:18 08/21/20 23 08/22/2023 CBC WITH DIFFE RENTI AL abs neutrophils 5.5 K/uL 1.8-7. 0 Not Available [facility] ([facility] [address] [place], [address], 08/22/2023 05:29:18 08/21/20 23 08/22/2023 CBC WITH DIFFE RENTI AL abs lymphocytes 1.9 K/uL 1.0-4. 0 Not Available [facility] ([facility] [address] [place], [address], 08/22/2023 05:29:18 08/21/20 23 08/22/2023 CBC WITH DIFFE RENTI AL abs monocytes 0.6 K/uL 0.1-1. 1 Not Available [facility] ([facility] [address] [place], [address], 08/22/2023 05:29:18 08/21/20 23 08/22/2023 CBC WITH DIFFE RENTI AL abs eosinophils 0.2 K/uL 0.0-0. 5 Not Available [facility] ([facility] [address] [place], [address], 08/22/2023 05:29:18 08/21/20 23 08/22/2023 CBC WITH DIFFE RENTI AL abs basophils 0.0 K/uL 0.0-0. 3 Not Available [facility] [address] [place], [address], 08/22/2023 05:29:18 08/21/20 23 08/22/2023 CBC WITH DIFFE RENTI AL abs immature grans 0.0 K/uL 0.0-0. 1 Not Available [facility] ([facility] [address] [place], [address], 08/22/2023 05:29:18 08/21/20 23 08/22/2023 CBC WITH DIFFE RENTI AL neutrophils 66.6 % Not Available [facility] [address] [place], [place], [address], 08/22/2023 05:29:18 08/21/20 23 08/22/2023 CBC WITH DIFFE RENTI AL lymphocytes 23.2 % Not Available [facility] [address] [place], [address], 08/22/2023 05:29:18 08/21/20 23 08/22/2023 CBC WITH DIFFE RENTI AL monocytes 7.6 % Not Available [facility] ([facility] [address] [place], [address], 08/22/2023 05:29:18 08/21/20 23 08/22/2023 CBC WITH DIFFE RENTI AL eosinophils 1.9 % Not Available [facility] [address] [place], [address], 08/22/2023 05:29:18 08/21/20 23 08/22/2023 CBC WITH DIFFE RENTI AL basophils 0.5 % Not Available [facility] ([facility] [address] [place], [address], 08/22/2023 05:29:18 08/21/20 23 08/22/2023 CBC WITH DIFFE RENTI AL immature grans 0.2 % Not Available [facility] [address] [place], [address], 08/22/2023 05:29:18 08/21/20 23 08/22/2023 CBC WITH DIFFE RENTI AL nucleated RBCs <1.0 /100_ WBCs <1 Not Available [facility] ([facility] [address] [place], [place], [address], 08/22/2023 05:29:18 Result Notes None recorded. Problems Name Problem SNOMED Code Status Onset Date Resolution Date Notes Provider Name and Address Organization Details Recorded Time Depressive disorder 79069008 Active 2022 Not Available [facility] 4 03:59:56 Bipolar disorder 72965339 Active 2022 Not Available [facility] 4 03:59:55 Post-traumati c stress disorder 75820774 Active 2022 Not Available [facility] 4 03:59:56 Nightmares 434201682 Active 2022 Not Available [facility] 4 03:59:56 Anxiety 32665390 Active 2022 Not Available [facility] 4 03:59:56 Hypertensive disorder 89238235 Active 2022 Not Available [facility] 4 03:59:56 Hyperlipidemi a 59610351 Active 2022 Not Available [facility] 4 03:59:56 Problem Notes None recorded. Procedures Surgical History Date Name Laterality Status Provider Name and Address Organization Details Recorded Time Knee Surgery completed Yvonne Gupta 07/21/2023 16:10:07 Orthopedic Surgery completed Yvonne Gupta 07/21/2023 16:10:30 Imaging Results None recorded. Procedure Notes None recorded. Medical Equipment None Reported. Allergies No known drug allergies Medications Name Sig Start Date Stop Date Status Note LastModified by Organization Details LastModified Time prednisone 20 mg tablet Take 1 tablet twice a day by oral route for 7 days. active Not Available Not Available No t Available buspirone 10 mg tablet Take 1 tablet 3 times a day by oral route for 30 days. active Not Available Not Available No t Available gabapentin 300 mg capsule Take 1 capsule twice a day by oral route for 30 days. active Not Available Not Available No t Available diclofenac sodium 75 mg tablet,ivonne yed release Take 1 tablet twice a day by oral route for 30 days. active Not Available Not Available No t Available mirtazapine 15 mg tablet Take 1 tablet every day by oral route at bedtime for 30 days. active Not Available Not Available No t Available azelastine 137 mcg (0.1 %) nasal spray [place] 2 sprays twice a day by intranasa l route. active Not Available Not Available No t Available doxycycline hyclate 100 mg tablet Take 1 tablet twice a day by oral route for 7 days. 08/21 completed Not Available Not Available Not Available Vitals Date Recorded Body weight Body mass index (BMI) Body height Body temperature Heart rate Oxygen saturation Systolic And Diastolic Provider Name and Address Organization Details Last Updated DateTime 3 26272.7 7 g 24.7 kg/m2 185.42 cm 97.5 [degF] 83 /min 97 % 115/76 mm[Hg] Yvonne Gupta 3 16:11:00 Date Recorded Body height Body mass index (BMI) Body weight Body temperature Heart rate Oxygen saturation Systolic And Diastolic Provider Name and Address Organization Details Last Updated DateTime 3 185.42 cm 25.1 kg/m2 71572.5 5 g 96.3 [degF] 73 /min 100 % 132/90 mm[Hg] Yvonne Gupta 3 11:24:44 Date Recorded Body height Body mass index (BMI) Body weight Body temperature Heart rate Oxygen saturation Systolic And Diastolic Provider Name and Address Organization Details Last Updated DateTime 3 185.42 cm 25.1 kg/m2 43915.5 5 g 96.6 [degF] 99 /min 100 % 140/90 mm[Hg] Yvonne Gupta 3 12:20:30 Social History Question Answer Notes LastModified by Organizat ion Details LastModified Time Tobacco Smoking Status Current Every Day Smoker YVAN Thacker 07/21/2023 16:09:30 Are You Blind Or Do You Have Difficulty Seeing? No Information not available 07/21/2023 What Is Your Level Of Caffeine Consumption? Heavy Information not available 07/21/2023 Are You Deaf Or Do You Have Serious Difficulty Hearing? No Information not available 07/21/2023 What Type Of Diet Are You Following? REGULAR Information not available 07/21/2023 Which Illicit Or Recreational Drugs Have You Used? THC Information not available 07/21/2023 What Was The Date Of Your Most Recent Tobacco Screening? 07/21/2023 Information not available 07/21/2023 How Many Children Do You Have? 0 Information not available 07/21/2023 What Is Your Relationship Status? Information not available 07/21/2023 At What Age Did You Start Smoking Tobacco? 14 Information not available 07/21/2023 How Much Tobacco Do You Smoke? 1 PPW Information not available 07/21/2023 Sex: Unknown Functional Status Question Answer Note LastModified by Organizat ion Details LastModified Time Do you use any illicit or recreational drugs? Yes Information not available 07/21/2023 Do you or have you ever used any other forms of tobacco or nicotine? No Information not available 07/21/2023 What is your level of alcohol consumption? None Information not available 07/21/2023 Are you currently employed? No Information not available 07/21/2023 Do you have difficulty doing errands alone? No Information not available 07/21/2023 Are you able to care for yourself independently? Yes Information not available 07/21/2023 Do you have difficulty dressing, bathing, grooming, or toileting? No Information not available 07/21/2023 Mental Status Question Answer Note LastModified by Organization D etails LastModified Time Do you have difficulty concentrating, remembering or making decisions? No Information no t available 07/21/2023 Family History Relationship Description Onset Age of this Age Resolved Age Notes LastModified by Organization Details LastModified Time Mother Malignant neoplastic disease Not available 2022 16:08:17 Mother Heart disease Not available 2022 16:08:33 Medical History No medical history recorded. Past Encounters Encounter ID Performer Location Encounter Start Date Encounter Closed Date Diagnosis/Indication Diagnosis SNOMED-CT Code Diagnosis ICD10 Code Diagnosis IMO Codes Diagnosis Note [id number] CIARA Hooker Main Office [address] [place] [address] [id number] 1 07/21/2023 15:58:26 07/21/2023 16:36:17 Acute sinusitis 59806712 J01.90 pt advised to complete course of antibiotic s, alternate tylenol/ib u for fever, stay well hydrated, and to follow up to clinic if symptoms don't resolve or worsen Pain of ri ght knee joint 9341298219 12806 M25.561 use as directedMIKE and will set up with Dr. Rosario Bipolar disorder 6090483 4 F31.9 use as directed Major depr essive disorder 168089888 F32.9 begin using as directed [id number] Nick Winn [facility] Main Office [address] [place] [id number] 1 08/21/2023 11:09:40 08/26/2023 17:12:22 Croupy cough 758117913 R05.9 pt advised to complete course of antibiotic s, alternate tylenol/ib u for fever, stay well hydrated, and to follow up to clinic if symptoms don't resolve or worsen Adult [facility] examination 653751199 Z00.00 will call with lab results. Screening for malignant neoplasm of colon 249372686 Z12.11 Major depr essive disorder 191134550 F32.9 begin using as directed Pain of ri ght knee joint 0709647608 45971 M25.561 use as MIKE mi and will set up with Dr. Rosario Bipolar disorder 2819589 4 F31.9 use as directed [id number] Nick Winn [facility] Main Office [address] [place] [id number] 1 08/29/2023 12:14:50 08/29/2023 14:04:10 Angina pectoris 025648762 I20.9 ekg wnl, advised pt that his angina and heart racing is most likely palpitatio ns from taking the steroid dose pack. he is going to continue to monitor and go to ED if symptoms worsen. Health Concerns Section Related Observation LastModified by Organization Detai ls LastModified Time None Recorded Concern Status LastModified by Organization Details LastModified Time None Recorded Advance Directives Directive None Recorded Payers Insurance Date Sequence Insurance Name Policy Number Policy Lux Covered Member ID Lux Member ID Guarantor Name 02/24/2024 2 [employer]ER[employer]LE HIGGINS - ESSENTIAL CARE 2 (PPO) Mukesh Morrison [id number] Mukesh Morrison 02/24/2024 1 [place] [id number] Mukesh Morrison [id number] Mukesh Morrison Notes Date Note Type Note Provider Name and Address Organization Details Recorded Time 3 text/html Musculoskeletal PainReported by PatientHPIFor quality, patient reportssharp. For severity, patient reportsinterference with sleepandinterference with workbut reportspain level without meds 04/17. For location, patient reportsright hipandright knee. For timing, patient reportsconstantandpain at night. Sinusitis/AllergyReported by PatientHPIFor associated symptoms, patient reportsnasal discharge from both nostrils,headache forehead,thick phlegm in throat,constantly clearing the throat,nasal discharge, andnasal passage blockage bilaterally. For quality, patient reportscongested,colored phlegm, andproductive cough. For location, patient reportsfrontal. For onset/timing, patient reportsinitially started 2months ago. New Patient. Patient is complaining of a sinus infection which started a couple of months ago. Patient is also complaining of right leg pain which started 2 weeks ago. Patient denies any injuries. Patient also states that he would like to start back on his medications, he has been off of them for a year now. CIARA Hooker [address] [place], [address], YVAN Gupta 07/22/2023 12:10:44 3 text/html Hypertension F/UReported by PatientHPIFor associated symptoms, patient reportsno dizziness,no lightheadedness,no chest pain,no shortness of breath,no palpitations,no edema, andno calf pain with exertion. For lifestyle, patient reportsregular exerciseandlimiting/avoidin g salt. For medications, patient reportstaking medications as directedandno side effects from medication. HyperlipidemiaReported by PatientHPIFor control, patient reportsusually well controlled,improving, andat goal. For compliance, patient reportscompliant,compliant with diet, andexercises. For complications, patient reportsno coronary artery disease,no peripheral artery disease, andno cardiovascular disease. Patient is here for a wellness exam and fasting lab. CIARA Hooker [address] [place], [address], YVAN Gupta 08/21/2023 15:27:10 3 text/html Angina/Chest PainReported by PatientHPIFor location, patient reportsradiates to the right armbut reportschest. For quality, patient reportsachingandsharp. For context, patient reportsexertional. For associated symptoms, patient reportschest discomfort,shortness of breath,dizziness, andlightheadedness. For severity, patient reportspain level 8/10. For duration, patient reportslasts hoursandbegan on ____ (today). Patient is complaining of chest pain and dizziness when he was working today. CIARA Hooker [address] [place], [address], YVAN Gupta 08/31/2023 22:35:40
[2025-08-10 19:45] LABS: Alanine Aminotransferase 16 U/L (0-41); Albumin Level 4.6 g/dL (3.5-5.2); Alkaline Phosphatase 71 U/L (40-130); Anion Gap 17.4 (5-19); Aspartate Amino Transferase 16 U/L (0-40); Blood Urea Nitrogen 27 mg/dL (6-20); Calcium 9.4 mg/dL (8.5-10.5); Carbon Dioxide 23 mmol/L (22-29); Chloride 107 mmol/L (98-107); Globulin 2.3 g/dL (1.3-4.6); Glucose 96 mg/dL (65-115); Osmolality Calculated 301 mOsm/kg (285-295); Potassium 4.4 mmol/L (3.5-5.1); Sodium 143 mmol/L (136-145); Total Protein 6.9 g/dL (6.6-8.7)
[2025-08-10 19:47] LABS: Troponin(5th) Baseline 14 ng/L (0-15)
--- NOTE | 2025-08-10 20:50 | ECG_ITS ---
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 Measurements Intervals Johnson Rate: 58 P: 54 DC: 188 QRS: 74 QRSD: 109 T: 28 QT: 405 QTc: 400 Interpretive Statements SINUS BRADYCARDIA Compared to ECG 08/10/2025 18:54:58 Sinus rhythm no longer present Electronically Signed On 08-10-2025 23:41:42 INTERNAL CONTROLS MANAGER by Taniya Alfaro M.D. [email or web address]
[2025-08-10 21:46] VITALS: BP 131/96; PULSE 66; RESP 14; O2SAT 96
== END 2025-08-10 21:48 | disposition home or self-care (01) ==
PROVIDERS: Emergency Provider Family Medicine
DX: R07.89 Other chest pain (principal); I10 Essential (primary) hypertension; Z72.0 Tobacco use
CPT/HCPCS: 36415; 71045; 80053; 84484; 85025; 93005; 96360; 99285; J7030